=== PATIENT | male | born 1975 | race Caucasian/White ===

== ENCOUNTER 2021-05-04 13:57 | Inpatient (IN) | payer SELFPAY ==
[2021-05-04] MEDS ORDERED: VANCOMYCIN PHARMACY TO DOSE IV SCH ×2 (17:00→23:00)
[2021-05-04] MEDS ORDERED: cefTRIAXone/NS 2 GM/100 ML 2 GM/100 ML BAG IV ONE (17:00)
--- NOTE | 2021-05-04 17:11 | Event Note ---
I evaluated patient. Patient has draining abscess 3 cm dorsal of hand. I recommended clindamycin, outpatient f/u
[2021-05-04] MEDS ORDERED: TETANUS,DIPH,PERTUSS(ACELL) VACCINE 0.5 ML SYRINGE IM ONE (17:14)
--- NOTE | 2021-05-04 17:15 | Emergency Department Report ---
- General Chief complaint: Extremity Injury, Upper Stated complaint: HAND CUT X 1 WEEK Time Seen by Provider: 05/04/21 16:34 Source: patient, [employer] Mode of arrival: Ambulatory Limitations: Language Barrier - History of Present Illness Initial comments: Serbian interpretation by Silvia, patient territory representative/elementary secretary present for HPI, PE, discussion of results, disposition Patient is a 45-year-old male who presents emergency room after cutting his hand with a knife a week and a half ago. He states that it was a work knife and he was cutting a piece of wood. He is unsure of his last tetanus immunization. Patient states that he was advised he had diabetes but never followed up and has never been on medication. He states that 1 week ago his hand began to swell and had purulent drainage. He denies any fever, chills, nausea, vomiting, numbness, weakness. No other past medical history. No allergies to medications. - Related Data Allergies Allergy/AdvReac Type Severity Reaction Status Date / Time No Known Allergies Allergy Verified 05/04/21 17:38 Abscess Boil HPI - HPI Chief Complaint: Extremity Injury, Upper Stated Complaint: HAND CUT X 1 WEEK Time Seen by Provider: 05/04/21 16:34 Allergies/Adverse Reactions: Allergies Allergy/AdvReac Type Severity Reaction Status Date / Time No Known Allergies Allergy Verified 05/04/21 17:38 ED Review of Systems ROS: Stated complaint: HAND CUT X 1 WEEK Other details as noted in HPI Comment: All other systems reviewed and negative ED Past Medical Hx - Past Medical History Previous Medical History?: No - Surgical History Past Surgical History?: No ED Physical Exam - General Limitations: Language Barrier General appearance: alert, in no apparent distress - Head Head exam: Present: atraumatic, normocephalic - Eye Eye exam: Present: normal appearance - ENT ENT exam: Present: mucous membranes moist - Extremities Exam Extremities exam: Present: other (0.5 cm opening present to the dorsum of the left hand, there is small amount of purulent drainage, mild surrounding edema and erythema, mild edema to the proximal left index finger, able to flex the index finger, neurovasculalry intact, no crepitus, no necrosis ) - Neurological Exam Neurological exam: Present: alert, oriented X3 - Psychiatric Psychiatric exam: Present: normal affect, normal mood - Skin Skin exam: Present: warm, dry ED Course Vital Signs 05/04/21 14:45 Temperature 98.3 F Pulse Rate 75 Respiratory 18 Rate Blood Pressure 137/71 O2 Sat by Pulse 99 Oximetry - Consultations Consultation #1: 05/04/21 18:[address] Martinez, hospitalist who will accept and resume care of patient, will admit to hospitalist service ED Medical Decision Making - Lab Data Result diagrams: 05/04/21 17:08 05/04/21 17:08 Lab Results 05/04/21 05/04/21 05/04/21 Range/Units 17:08 17:08 17:08 WBC 8.0 (4.5-11.0) K/mm3 RBC 4.95 (3.65-5.03) M/mm3 Hgb 14.7 (11.8-15.2) gm/dl Hct 42.8 (35.5-45.6) % MCV 87 (84-94) fl MCH 30 (28-32) pg MCHC 34 (32-34) % RDW 13.1 L (13.2-15.2) % Plt Count 273 (140-440) K/mm3 Lymph % (Auto) 19.0 (13.4-35.0) % [place] % (Auto) 4.8 (0.0-7.3) % Eos % (Auto) 8.0 H (0.0-4.3) % Baso % (Auto) 0.8 (0.0-1.8) % Lymph # (Auto) 1.5 (1.2-5.4) K/mm3 [place] # (Auto) 0.4 (0.0-0.8) K/mm3 Eos # (Auto) 0.6 H (0.0-0.4) K/mm3 Baso # (Auto) 0.1 (0.0-0.1) K/mm3 Seg Neutrophils % 67.4 (40.0-70.0) % Seg Neutrophils # 5.4 (1.8-7.7) K/mm3 VBG pH (7.320-7.420) Sodium 137 (137-145) mmol/L Potassium 4.1 (3.6-5.0) mmol/L Chloride 99.3 (98-107) mmol/L Carbon Dioxide 24 (22-30) mmol/L Anion Gap 18 mmol/L BUN 23 H (9-20) mg/dL Creatinine 0.6 L (0.8-1.3) mg/dL Estimated GFR > 60 ml/min BUN/Creatinine Ratio 38 % Glucose 325 H (75-100) mg/dL Lactic Acid 1.20 (0.7-2.0) mmol/L Calcium 9.0 (8.4-10.2) mg/dL Total Bilirubin 0.20 (0.1-1.2) mg/dL AST 12 (5-40) units/L ALT 21 (7-56) units/L Alkaline Phosphatase 148 H (35-129) units/L C-Reactive Protein 1.70 H (0.00-1.30) mg/dL Total Protein 7.4 (6.3-8.2) g/dL Albumin 3.4 L (3.9-5) g/dL Albumin/Globulin Ratio 0.9 % // Range/Units 17:08 WBC (4.5-11.0) K/mm3 RBC (3.65-5.03) M/mm3 Hgb (11.8-15.2) gm/dl Hct (35.5-45.6) % MCV (84-94) fl MCH (28-32) pg MCHC (32-34) % RDW (13.2-15.2) % Plt Count (140-440) K/mm3 Lymph % (Auto) (13.4-35.0) % [place] % (Auto) (0.0-7.3) % Eos % (Auto) (0.0-4.3) % Baso % (Auto) (0.0-1.8) % Lymph # (Auto) (1.2-5.4) K/mm3 [place] # (Auto) (0.0-0.8) K/mm3 Eos # (Auto) (0.0-0.4) K/mm3 Baso # (Auto) (0.0-0.1) K/mm3 Seg Neutrophils % (40.0-70.0) % Seg Neutrophils # (1.8-7.7) K/mm3 VBG pH 7.458 H (7.320-7.420) Sodium (137-145) mmol/L Potassium (3.6-5.0) mmol/L Chloride (98-107) mmol/L Carbon Dioxide (22-30) mmol/L Anion Gap mmol/L BUN (9-20) mg/dL Creatinine (0.8-1.3) mg/dL Estimated GFR ml/min BUN/Creatinine Ratio % Glucose (75-100) mg/dL Lactic Acid (0.7-2.0) mmol/L Calcium (8.4-10.2) mg/dL Total Bilirubin (0.1-1.2) mg/dL AST (5-40) units/L ALT (7-56) units/L Alkaline Phosphatase (35-129) units/L C-Reactive Protein (0.00-1.30) mg/dL Total Protein (6.3-8.2) g/dL Albumin (3.9-5) g/dL Albumin/Globulin Ratio % - Radiology Data Radiology results: report reviewed Ordering Physician: NEDA NINO Date of Service: 05/04/21 Procedure(s): XR hand 3+V LT Accession Number(s): [id number] cc: NEDA NINO Fluoro Time In Minutes: LEFT HAND 3 VIEWS 1736 INDICATION: hand infection, cut 1 1/2 week ago, hx of DM COMPARISON: None available. FINDINGS: Images were obtained emphasizing the soft tissues. No soft tissue gas is seen. Diffuse edema of the hand is noted which is most prominent laterally. No foreign body is detected. No fractures or dislocations are obvious. The head of the second metacarpal ventrally and laterally appears to show decreased density and the cortex is poorly defined. I am concerned given the history this could represent focal osteomyelitis. There is also a question of loss of the cortex along the medial border of the second metacarpal head on the AP view. Prominent arthritic change is seen in the proximal interphalangeal joint of the middle finger with mild arthritic change at the third metacarpal phalangeal joint. There possibly is been an old fracture or infection of the distal portion of the proximal phalanx of the middle finger. No definite acute erosions are seen. I would suggest Signer Name: Omega Goddard MD Signed: 05/04/2021 5:41 PM Workstation Name: [id number] Transcribed By: GJ Dictated By: Omega Goddard MD Electronically Authenticated By: Omega Goddard MD Signed Date/Time: 05/04/211740 DD/ 33 TD/TT: - Medical Decision Making Serbian interpretation by Silvia, patient territory representative/elementary secretary present for HPI, PE, discussion of results, disposition Patient is a 45-year-old male who presents emergency room after cutting his hand with a knife a week and a half ago. He states that it was a work knife and he was cutting a piece of wood. He is unsure of his last tetanus immunization. Patient states that he was advised he had diabetes but never followed up and has never been on medication. He states that 1 week ago his hand began to swell and had purulent drainage. He denies any fever, chills, nausea, vomiting, numbness, weakness. No other past medical history. No allergies to medications. Vitals are normal. On exam:0.5 cm opening present to the dorsum of the left hand, there is small amount of purulent drainage, mild surrounding edema and erythema, mild edema to the proximal left index finger, able to flex the index finger, neurovasculalry intact, no crepitus, no necrosis. Examination presents distant with cellulitis and open and draining abscess. Labs significant for elevated blood glucose, no leukocytosis, no lactic acidosis. X-ray left hand: Images were obtained emphasizing the soft tissues. No soft tissue gas is seen. Diffuse edema of the hand is noted which is most prominent laterally. No foreign body is detected. No fractures or dislocations are obvious. The head of the second metacarpal ventrally and laterally appears to show decreased density and the cortex is poorly defined. I am concerned given the historythis could represent focal osteomyelitis. There is also a question of loss of the cortex along the medial border of the second metacarpal head on the AP view. Prominent arthritic change is seen in the proximal interphalangeal joint of the middle finger with mild arthritic change at the third metacarpal phalangeal joint. There possibly is been an old fracture or infection of the distal portion of the proximal phalanx of the middle finger. No definite acute erosions are seen. I would suggest MR. Discussed case with Dr. Jany Johnson, ER attending who evaluated patient at bedside and reviewed images and agrees with admission, she advised to give patient IV clindamycin. Discussed all results with patient using [employer] [place] and patient was agreeable with admission. Discussed case with Dr. Martinez, hospitalist who will accept and resume care of patient, will admit to hospitalist service Critical care attestation.: If time is entered above; I have spent that time in minutes in the direct care of this critically ill patient, excluding procedure time. ED Disposition Clinical Impression: Cellulitis of hand, Hand abscess Osteomyelitis Qualifiers: Osteomyelitis type: unspecified type Osteomyelitis location: hand Laterality: right Qualified Code(s): M86.9 - Osteomyelitis, unspecified Uncontrolled diabetes mellitus Qualifiers: Diabetes mellitus type: type 2 Glycemic state: with hyperglycemia Qualified Code(s): E11.65 - Type 2 diabetes mellitus with hyperglycemia Disposition: [facility] Is pt being admited?: Yes Does the pt Need Aspirin: No Condition: Fair Time of Disposition: 18:36
--- NOTE | 2021-05-04 17:45 | XRay Report ---
LEFT HAND 3 VIEWS 1736 INDICATION: hand infection, cut 1 1/2 week ago, hx of DM COMPARISON: None available. FINDINGS: Images were obtained emphasizing the soft tissues. No soft tissue gas is seen. Diffuse kaleb a of the hand is noted which is most prominent laterally. No foreign body is detected. No fractures o r dislocations are obvious. The head of the second metacarpal ventrally and laterally appears to show decreased density and the cortex is poorly defined. I am concerned given the history this could repr esent focal osteomyelitis. There is also a question of loss of the cortex along the medial border of the second metacarpal head on the AP view. Prominent arthritic change is seen in the proximal interphalangeal joint of the middle finger with mi ld arthritic change at the third metacarpal phalangeal joint. There possibly is been an old fracture or infection of the distal portion of the proximal phalanx of the middle finger. No definite acute er osions are seen. I would suggest MR. Signer Name: Omega Goddard MD Signed: 05/04/2021 5:41 PM Workstation Name: [email or web address]
[2021-05-04] MEDS ORDERED: VANCOMYCIN/NS 1 GM/250 ML 1 GM/250 ML BAG IV ONE (18:00)
[2021-05-04 18:04] LABS: Basophils # (Auto) 0.1 K/mm3 (0.0-0.1); Basophils % (Auto) 0.8 % (0.0-1.8); Eosinophils # (Auto) 0.6 K/mm3 (0.0-0.4); Hematocrit 42.8 % (35.5-45.6); Hemoglobin 14.7 gm/dl (11.8-15.2); Lymphocytes # (Auto) 1.5 K/mm3 (1.2-5.4); Mean Corpuscular HGB Conc 34 % (32-34); Mean Corpuscular Volume 87 fl (84-94); Monocytes # (Auto) 0.4 K/mm3 (0.0-0.8); Monocytes % (Auto) 4.8 % (0.0-7.3); Platelet Count 273 K/mm3 (140-440); Red Blood Count 4.95 M/mm3 (3.65-5.03); Red Cell Distribution Width 13.1 % (13.2-15.2)
[2021-05-04 18:12] LABS: Alanine Aminotransferase 21 units/L (7-56); Albumin 3.4 g/dL (3.9-5); Blood Urea Nitrogen 23 mg/dL (9-20); Hemolysis Index 4
[2021-05-04 18:17] LABS: BUN/Creatinine Ratio 38
--- NOTE | 2021-05-04 22:25 | History and Physical Report ---
History of Present Illness Date of examination: 05/04/21 Date of admission: 05/04/21 18:36 Chief complaint: Swollen right hand for 1 week History of present illness: 45-year-old Tongan-speaking male comes to the emergency room for swelling of the left hand and pain for 10 days. Patient apparently cut his hand with a knife accidentally while cutting a piece of wood. Patient is not sure about his tetanus evaluation. Patient has diabetes but not taking any medications and is noncompliant with his diabetes. Since 1 week stable his hand got swollen and purulent discharge present. No fever or chills. Pain is about 7 on a regular 1-10. - Past Medical History diabetes-noncompliant - Surgical History Past Surgical History?: No -social history -does not smoke, alcohol occasionally - family history --diabetes Review of Systems ROS: Stated complaint:Lt HAND CUT X 10 days and swelling for 1 week Other details as noted in HPI Comment: All other systems reviewed and negative Medications and Allergies Allergies Allergy/AdvReac Type Severity Reaction Status Date / Time No Known Allergies Allergy Verified 05/04/21 17:38 Exam - Constitutional Vitals: Temp Pulse Resp BP Pulse Ox 98.3 F 75 18 137/71 99 05/04/21 14:45 05/04/21 14:45 05/04/21 14:45 05/04/21 14:45 05/04/21 14:45 General appearance: Present: no acute distress, well-nourished - EENT Eyes: Present: PERRL ENT: hearing intact, clear oral mucosa - Neck Neck: Present: supple, normal ROM - Respiratory Respiratory effort: normal Respiratory: bilateral: CTA - Cardiovascular Heart rate: 78 Rhythm: regular Heart Sounds: Present: S1 & S2. Absent: rub, click - Extremities Extremities: no ischemia, pulses intact (Right hand swollen on the dorsum of the hand and index finger. Ring fingers flexion deformity which is from the past), pulses symmetrical, No edema, abnormal Peripheral Pulses: within normal limits - Abdominal General gastrointestinal: Present: soft, non-tender, non-distended, normal bowel sounds Male genitourinary: Present: normal - Integumentary Integumentary: Present: clear, warm, dry - Musculoskeletal Musculoskeletal: gait normal, strength equal bilaterally - Psychiatric Psychiatric: appropriate mood/affect, intact judgment & insight - Neurologic Neurologic: CNII-XII intact, moves all extremities Results - Labs CBC & Chem 7: 05/05/21 04:20 05/05/21 04:20 Labs: Laboratory Last Values WBC 8.0 K/mm3 (4.5-11.0) 05/04/21 17:08 RBC 4.95 M/mm3 (3.65-5.03) 05/04/21 17:08 Hgb 14.7 gm/dl (11.8-15.2) 05/04/21 17:08 Hct 42.8 % (35.5-45.6) 05/04/21 17:08 MCV 87 fl (84-94) 05/04/21 17:08 MCH 30 pg (28-32) 05/04/21 17:08 MCHC 34 % (32-34) 05/04/21 17:08 RDW 13.1 % (13.2-15.2) L 05/04/21 17:08 Plt Count 273 K/mm3 (140-440) 05/04/21 17:08 Lymph % (Auto) 19.0 % (13.4-35.0) 05/04/21 17:08 [place] % (Auto) 4.8 % (0.0-7.3) 05/04/21 17:08 Eos % (Auto) 8.0 % (0.0-4.3) H 05/04/21 17:08 Baso % (Auto) 0.8 % (0.0-1.8) 05/04/21 17:08 Lymph # (Auto) 1.5 K/mm3 (1.2-5.4) 05/04/21 17:08 [place] # (Auto) 0.4 K/mm3 (0.0-0.8) 05/04/21 17:08 Eos # (Auto) 0.6 K/mm3 (0.0-0.4) H 05/04/21 17:08 Baso # (Auto) 0.1 K/mm3 (0.0-0.1) 05/04/21 17:08 Seg Neutrophils % 67.4 % (40.0-70.0) 05/04/21 17:08 Seg Neutrophils # 5.4 K/mm3 (1.8-7.7) 05/04/21 17:08 VBG pH 7.458 (7.320-7.420) H 05/04/21 17:08 Sodium 137 mmol/L (137-145) 05/04/21 17:08 Potassium 4.1 mmol/L (3.6-5.0) 05/04/21 17:08 Chloride 99.3 mmol/L (98-107) 05/04/21 17:08 Carbon Dioxide 24 mmol/L (22-30) 05/04/21 17:08 Anion Gap 18 mmol/L 05/04/21 17:08 BUN 23 mg/dL (9-20) H 05/04/21 17:08 Creatinine 0.6 mg/dL (0.8-1.3) L 05/04/21 17:08 Estimated GFR > 60 ml/min 05/04/21 17:08 BUN/Creatinine Ratio 38 % 05/04/21 17:08 Glucose 325 mg/dL (75-100) H 05/04/21 17:08 Lactic Acid 1.20 mmol/L (0.7-2.0) 05/04/21 17:08 Calcium 9.0 mg/dL (8.4-10.2) 05/04/21 17:08 Total Bilirubin 0.20 mg/dL (0.1-1.2) 05/04/21 17:08 AST 12 units/L (5-40) 05/04/21 17:08 ALT 21 units/L (7-56) 05/04/21 17:08 Alkaline Phosphatase 148 units/L (35-129) H 05/04/21 17:08 C-Reactive Protein 1.70 mg/dL (0.00-1.30) H 05/04/21 17:08 Total Protein 7.4 g/dL (6.3-8.2) 05/04/21 17:08 Albumin 3.4 g/dL (3.9-5) L 05/04/21 17:08 Albumin/Globulin Ratio 0.9 % 05/04/21 17:08 Microbiology: Microbiology 05/04/21 17:08 Peripheral/Venous Blood Culture - Preliminary Culture in Progress 05/04/21 17:08 Peripheral/Venous Blood Culture - Preliminary Culture in Progress - Imaging and Cardiology Imaging and Cardiology: L Hand x-ray No soft tissue gas is seen Diffuse edema of the hand is noted which is prominent laterally. No foreign body is detected. No fractures. The head of the second metacarpal ventrally and laterally 52 increased density in the cortex is poorly defined. Concern given the history this could represent focal osteomyelitis. There is also a question of loss of the cortex along the medial border of the second metacarpal head on the AP view. Prominent arthritic changes seen in the proximal interphalangeal joint of the middle finger with mild arthritic change at the third metacarpal phalangeal joint. There possibly has been an old fracture infection of the distal portion of the proximal phalanx of the middle finger. MRI was suggested by radiology. Assessment and Plan Advance Directives: Yes (Full code) VTE prophylaxis?: Chemical Plan of care discussed with patient/family: Yes - Patient Problems (1) Cellulitis of hand Current Visit: Yes Status: Acute Plan to address problem: Patient initiated on IV Unasyn and IV vancomycin Surgery consult Orthopedic consult (2) Osteomyelitis Current Visit: Yes Status: Acute Qualifiers: Osteomyelitis type: unspecified type Osteomyelitis location: hand Laterality: right Qualified Code(s): M86.9 - Osteomyelitis, unspecified Plan to address problem: Possible osteomyelitis MRI of the hand suggested (3) Uncontrolled diabetes mellitus Current Visit: Yes Status: Acute Qualifiers: Diabetes mellitus type: type 2 Glycemic state: with hyperglycemia Qualified Code(s): E11.65 - Type 2 diabetes mellitus with hyperglycemia Plan to address problem: Patient initiated on Metformin and glimepiride Coverage for now Diabetic teaching (4) Trigger middle finger of left hand Current Visit: Yes Status: Chronic Plan to address problem: From the past secondary to hand injury and possible tendon deformity versus fracture of the third metacarpal/interphalangeal joint-PIP (5) DVT prophylaxis Current Visit: Yes Status: Acute Plan to address problem: on heparin and GI prophylaxis
[2021-05-04] MEDS ORDERED: ONDANSETRON 4 MG/2 ML INJ IV PRN (23:50)
[2021-05-04] MEDS ORDERED: HYDROmorphone 1 MG/1 ML INJ IV PRN (23:50)
[2021-05-04] MEDS ORDERED: METOCLOPRAMIDE 10 MG/2 ML INJ IV PRN (23:50)
[2021-05-04] MEDS ORDERED: DEXTROSE 50% IN WATER (25GM) 50 ML SYRINGE IV PRN (23:50)
[2021-05-04] MEDS ORDERED: oxyCODONE /ACETAMINOPHEN 5-325MG TAB PO PRN (23:50)
[2021-05-04] MEDS ORDERED: ACETAMINOPHEN 325 MG TAB PO PRN (23:50)
[2021-05-05] MEDS ORDERED: VANCOMYCIN 2,000 MG in SODIUM CHLORIDE 0.9% 500 ML 500 ML IV ONE (01:00)
[2021-05-05] MEDS ORDERED: VANCOMYCIN 1,750 MG in SODIUM CHLORIDE 0.9% 500 ML 500 ML IV ONE (01:00)
[2021-05-05] MEDS: AMPICILLIN/SULBACTA 3GM/100ML 3 GM/100 ML BAG IV SCH ×4 (01:24→17:59)
[2021-05-05 04:40] LABS: Basophils % (Auto) 0.4 % (0.0-1.8); Eosinophils # (Auto) 0.7 K/mm3 (0.0-0.4); Eosinophils % (Auto) 7.7 % (0.0-4.3); Hematocrit 41.2 % (35.5-45.6); Hemoglobin 14.3 gm/dl (11.8-15.2); Lymphocytes % (Auto) 22.4 % (13.4-35.0); Mean Corpuscular HGB Conc 35 % (32-34); Mean Corpuscular Volume 85 fl (84-94); Monocytes # (Auto) 0.6 K/mm3 (0.0-0.8); Monocytes % (Auto) 6.3 % (0.0-7.3); Platelet Count 265 K/mm3 (140-440); Red Blood Count 4.83 M/mm3 (3.65-5.03); Red Cell Distribution Width 13.2 % (13.2-15.2)
[2021-05-05 05:02] LABS: Blood Urea Nitrogen 22 mg/dL (9-20); Calcium 8.9 mg/dL (8.4-10.2); Hemolysis Index 3
[2021-05-05 05:03] LABS: BUN/Creatinine Ratio 44
[2021-05-05] MEDS: INSULIN LISPRO 100 UNIT/ML SUB-Q SCH ×4 (07:22→22:00)
--- NOTE | 2021-05-05 10:37 | Progress Note ---
Assessment and Plan Assessment and plan: --Cellulitis of hand Current Visit: Yes Status: Acute Patient initiated on IV Unasyn and IV vancomycin Pending surgery and Ortho consult Elevate the limb, pain medications, antibiotics --Possible osteomyelitis Current Visit: Yes Status: Acute Pending MRI, follow Ortho and surgery evaluations --0Uncontrolled diabetes mellitus Current Visit: Yes Status: Acute Patient initiated on Metformin and glimepiride Accu-Chek sliding scale coverage ,coverage for now Diabetic teaching, check A1c 9.7 --left hand cellulitis/abscess/deformity Current Visit: Yes Status: Chronic Elevate the limb, pain medications, anti-inflammatories IV antibiotics, possible I&D if needed, follow MRI --DVT prophylaxis Current Visit: Yes Status: Acute on heparin and GI prophylaxis We will closely monitor the patient and adjust management as needed Plan of care reviewed with the patient and his nurse History Interval history: I have seen and examined the patient at the bedside this morning Patient's chart and medications reviewed patient complains of severe pain of the left hand MRI done this morning Hospitalist Physical - Constitutional Vitals: Temp Pulse Resp BP Pulse Ox 98.3 F 74 19 120/71 91 05/04/21 22:37 05/05/21 08:51 05/05/21 08:51 05/05/21 08:51 05/05/21 08:51 General appearance: Present: mild distress, well-nourished - EENT Eyes: Present: PERRL, EOM intact - Neck Neck: Present: supple, normal ROM - Respiratory Respiratory effort: normal Respiratory: bilateral: diminished, negative: rales, rhonchi, wheezing - Cardiovascular Rhythm: regular Heart Sounds: Present: S1 & S2 - Extremities Extremities: no ischemia, abnormal (Left hand severely swollen, infected wound present, possible cellulitis/abscess) Extremity abnormal: edema, other (Deformity) - Abdominal General gastrointestinal: soft, non-tender, non-distended, normal bowel sounds - Integumentary Integumentary: Present: clear, warm - Psychiatric Psychiatric: appropriate mood/affect, cooperative - Neurologic Neurologic: CNII-XII intact, moves all extremities Results - Labs CBC & Chem 7: 05/05/21 04:20 05/05/21 04:20 Labs: Laboratory Last Values WBC 9.0 K/mm3 (4.5-11.0) 05/05/21 04:20 RBC 4.83 M/mm3 (3.65-5.03) 05/05/21 04:20 Hgb 14.3 gm/dl (11.8-15.2) 05/05/21 04:20 Hct 41.2 % (35.5-45.6) 05/05/21 04:20 MCV 85 fl (84-94) 05/05/21 04:20 MCH 30 pg (28-32) 05/05/21 04:20 MCHC 35 % (32-34) H 05/05/21 04:20 RDW 13.2 % (13.2-15.2) 05/05/21 04:20 Plt Count 265 K/mm3 (140-440) 05/05/21 04:20 Lymph % (Auto) 22.4 % (13.4-35.0) 05/05/21 04:20 [place] % (Auto) 6.3 % (0.0-7.3) 05/05/21 04:20 Eos % (Auto) 7.7 % (0.0-4.3) H 05/05/21 04:20 Baso % (Auto) 0.4 % (0.0-1.8) 05/05/21 04:20 Lymph # (Auto) 2.0 K/mm3 (1.2-5.4) 05/05/21 04:20 [place] # (Auto) 0.6 K/mm3 (0.0-0.8) 05/05/21 04:20 Eos # (Auto) 0.7 K/mm3 (0.0-0.4) H 05/05/21 04:20 Baso # (Auto) 0.0 K/mm3 (0.0-0.1) 05/05/21 04:20 Seg Neutrophils % 63.2 % (40.0-70.0) 05/05/21 04:20 Seg Neutrophils # 5.7 K/mm3 (1.8-7.7) 05/05/21 04:20 VBG pH 7.458 (7.320-7.420) H 05/04/21 17:08 Sodium 138 mmol/L (137-145) 05/05/21 04:20 Potassium 3.6 mmol/L (3.6-5.0) 05/05/21 04:20 Chloride 101.6 mmol/L (98-107) 05/05/21 04:20 Carbon Dioxide 25 mmol/L (22-30) 05/05/21 04:20 Anion Gap 15 mmol/L 05/05/21 04:20 BUN 22 mg/dL (9-20) H 05/05/21 04:20 Creatinine 0.5 mg/dL (0.8-1.3) L 05/05/21 04:20 Estimated GFR > 60 ml/min 05/05/21 04:20 BUN/Creatinine Ratio 44 % 05/05/21 04:20 Glucose 193 mg/dL (75-100) H 05/05/21 04:20 POC Glucose 193 mg/dL (70-105) H 05/05/21 06:36 Hemoglobin A1c 9.7 % (4-6) H 05/05/21 04:20 Lactic Acid 1.20 mmol/L (0.7-2.0) 05/04/21 17:08 Calcium 8.9 mg/dL (8.4-10.2) 05/05/21 04:20 Total Bilirubin 0.20 mg/dL (0.1-1.2) 05/04/21 17:08 AST 12 units/L (5-40) 05/04/21 17:08 ALT 21 units/L (7-56) 05/04/21 17:08 Alkaline Phosphatase 148 units/L (35-129) H 05/04/21 17:08 C-Reactive Protein 1.70 mg/dL (0.00-1.30) H 05/04/21 17:08 Total Protein 7.4 g/dL (6.3-8.2) 05/04/21 17:08 Albumin 3.4 g/dL (3.9-5) L 05/04/21 17:08 Albumin/Globulin Ratio 0.9 % 05/04/21 17:08 Microbiology: Microbiology 05/04/21 17:08 Peripheral/Venous Blood Culture - Preliminary Culture in Progress 05/04/21 17:08 Peripheral/Venous Blood Culture - Preliminary Culture in Progress Active Medications - Current Medications Current Medications: Generic Name Dose Route Start Last Admin Trade Name Freq PRN Reason Stop Dose Admin Acetaminophen 650 mg 05/04/21 23:50 Acetaminophen 325 Mg Tab PO Q4H PRN Pain MILD(1-3)/Fever >100.5/LIMON Dextrose 50 ml 05/04/21 23:50 Dextrose 50% In Water (25gm) 50 Ml Syringe IV Q30MIN PRN Hypoglycemia Protocol Famotidine 20 mg 05/05/21 10:00 Famotidine 20 Mg Tab PO BID [facility] Glipizide 5 mg 05/05/21 09:00 Glipizide 5 Mg Tab PO BIDDIAB [facility] Heparin Sodium (Porcine) 5,000 unit 05/05/21 10:00 Heparin 5,000 Unit/1 Ml Vial SUB-Q Q12HR [facility] Hydromorphone HCl 0.5 mg 05/04/21 23:50 Hydromorphone 1 Mg/1 Ml Inj IV Q3H PRN Pain , Severe (7-10) Sodium Chloride 1,000 mls @ 75 mls/hr 05/04/21 23:50 Nacl 0.9% 1000 Ml IV DIRECT [facility] Ampicillin Sodium/Sulbactam Sodium 3 gm in 100 mls @ 100 mls/hr 05/05/21 00:00 05/05/21 06:27 Unasyn/Ns 3 Gm/100 Ml IV 100 mls/hr Q6HR [facility] Administration Protocol Vancomycin HCl 1,500 mg/ 530 mls @ 333.333 mls/hr 05/05/21 13:00 Sodium Chloride IV Q12H [facility] Insulin Human Lispro 0 unit 05/05/21 07:30 05/05/21 07:22 Insulin Lispro 100 Unit/Ml SUB-Q 3 unit ACHS [facility] Administration Protocol Metformin HCl 500 mg 05/05/21 09:00 Metformin 500 Mg Tab PO BIDDIAB [facility] Metoclopramide HCl 10 mg 05/04/21 23:50 Metoclopramide 10 Mg/2 Ml Inj IV Q6H PRN Nausea And Vomiting Ondansetron HCl 4 mg 05/04/21 23:50 Ondansetron 4 Mg/2 Ml Inj IV Q8H PRN Nausea And Vomiting Oxycodone/Acetaminophen 1 tab 05/04/21 23:50 Oxycodone /Acetaminophen 5-325mg Tab PO Q6H PRN Pain, Moderate (4-6) Sodium Chloride 10 ml 05/04/21 23:50 05/05/21 01:24 Sodium Chloride 0.9% 10 Ml Flush Syringe IV 10 ml BID SIMEON Administration Sodium Chloride 10 ml 05/04/21 23:50 Sodium Chloride 0.9% 10 Ml Flush Syringe IV PRN PRN LINE FLUSH
[2021-05-05] MEDS: metFORMIN 500 MG TAB PO SCH ×2 (10:52→18:00)
[2021-05-05] MEDS: glipiZIDE 5 MG TAB PO SCH ×2 (10:52→18:00)
[2021-05-05] MEDS: HEPARIN 5,000 UNIT/1 ML VIAL SUB-Q SCH ×2 (12:18→22:14)
[2021-05-05] MEDS: FAMOTIDINE 20 MG TAB PO SCH ×2 (12:19→22:15)
[2021-05-05] MEDS: VANCOMYCIN 1,500 MG in SODIUM CHLORIDE 0.9% 500 ML 500 ML IV SCH (12:21)
--- NOTE | 2021-05-05 12:28 | Consultation ---
History of Present Illness - HPI Consult date: 05/05/21 Consult reason: joint pain History of present illness: 45 y/o male with c/o left hand pain and swelling for past wk, states originally injured hand cutting wood...seen in the ED and admitted... Medications and Allergies Allergies Allergy/AdvReac Type Severity Reaction Status Date / Time No Known Allergies Allergy Verified 05/04/21 17:38 Active Meds: Active Medications Acetaminophen (Acetaminophen 325 Mg Tab) 650 mg PO Q4H PRN PRN Reason: Pain MILD(1-3)/Fever >100.5/LIMON Dextrose (Dextrose 50% In Water (25gm) 50 Ml Syringe) 50 ml IV Q30MIN PRN; Protocol PRN Reason: Hypoglycemia Famotidine (Famotidine 20 Mg Tab) 20 mg PO BID [facility] Last Admin: 05/05/21 12:19 Dose: Not Given Documented by: Glipizide (Glipizide 5 Mg Tab) 5 mg PO BIDDIAB [facility] Last Admin: 05/05/21 10:52 Dose: Not Given Documented by: Heparin Sodium (Porcine) (Heparin 5,000 Unit/1 Ml Vial) 5,000 unit SUB-Q Q12HR [facility] Last Admin: 05/05/21 12:18 Dose: Not Given Documented by: Hydromorphone HCl (Hydromorphone 1 Mg/1 Ml Inj) 0.5 mg IV Q3H PRN PRN Reason: Pain , Severe (7-10) Sodium Chloride (Nacl 0.9% 1000 Ml) 1,000 mls @ 75 mls/hr IV DIRECT [facility] Ampicillin Sodium/Sulbactam Sodium (Unasyn/Ns 3 Gm/100 Ml) 3 gm in 100 mls @ 100 mls/hr IV Q6HR [facility]; Protocol Last Admin: 05/05/21 06:27 Dose: 100 mls/hr Documented by: Vancomycin HCl 1,500 mg/ (Sodium Chloride) 530 mls @ 333.333 mls/hr IV Q12H [facility] Last Admin: 05/05/21 12:21 Dose: 333.333 mls/hr Documented by: Insulin Human Lispro (Insulin Lispro 100 Unit/Ml) 0 unit SUB-Q ACHS [facility]; Pr otocol Last Admin: 05/05/21 12:19 Dose: Not Given Documented by: Metformin HCl (Metformin 500 Mg Tab) 500 mg PO BIDDIAB [facility] Last Admin: 05/05/21 10:52 Dose: Not Given Documented by: Metoclopramide HCl (Metoclopramide 10 Mg/2 Ml Inj) 10 mg IV Q6H PRN PRN Reason: Nausea And Vomiting Ondansetron HCl (Ondansetron 4 Mg/2 Ml Inj) 4 mg IV Q8H PRN PRN Reason: Nausea And Vomiting Oxycodone/Acetaminophen (Oxycodone /Acetaminophen 5-325mg Tab) 1 tab PO Q6H PRN PRN Reason: Pain, Moderate (4-6) Sodium Chloride (Sodium Chloride 0.9% 10 Ml Flush Syringe) 10 ml IV BID [facility] Last Admin: 05/05/21 12:22 Dose: 10 ml Documented by: Sodium Chloride (Sodium Chloride 0.9% 10 Ml Flush Syringe) 10 ml IV PRN PRN PRN Reason: LINE FLUSH Physical Examination - Physical exam Narrative exam: left hand - moderate swelling dorsally, + drainage, no pus expressed with deep palpation, good passive RoM at 1,2nd fingers, + erythema dorsally, good capillary refill plain xrays reviewed left hand and show mild osteopenia, no bony changes seen suggestive of osteomyelitis mri scan reviewed by me and show no obvious abscess formation in the hand... Eyes: PERRL ENT: Positive: clear oral mucosa Respiratory effort: normal Respiratory: bilateral: CTA Rhythm: regular Heart Sounds: Positive: S1 & S2 General gastrointestinal: Positive: soft, non-tender, non-distended, normal bowel sounds Integumentary: clear, warm, dry Neurologic: Positive: CNII-XII intact, moves all extremities, gait normal. Negative: focal deficits Assessment and Plan Cellulitis left hand recommend = continue IVAB and observation at this time, doubt need for I&D since no abscess seen on mri scan...
--- NOTE | 2021-05-05 12:40 | Magnetic Resonance Report ---
MRI LEFT HAND WITHOUT CONTRAST INDICATION / CLINICAL INFORMATION: MRI of the left hand for possible osteomyelitis. TECHNIQUE: Multiplanar, multisequence MR images were obtained. COMPARISON: Left hand radiograph one day prior FINDINGS: Intramuscular and soft tissue edema centered about the index finger metacarpal phalangeal j oint with abnormal marrow signal involving the distal second metacarpal and base of the proximal phal anx of the index finger. There is an effusion of the second MCP joint. There are a few scattered foci of gas within the dorsal subcutaneous tissues of the hand. Small focus of magnetic susceptibility ov erlying the dorsal aspect of the second metacarpal head. No discrete fluid collection is identified t o suggest abscess. Polyarticular degenerative changes, most severe at the third PIP joint. IMPRESSION: 1. Osteomyelitis involving the mid and distal second metacarpal as well as the base of the second pr oximal phalanx. Second MCP joint effusion with periarticular osteomyelitis is most consistent with se ptic arthritis of the second MCP joint. 2. Soft tissue and intramuscular edema centered about the second MCP joint but extending throughout the dorsal and palmar soft tissues of the distal palm. 3. Small focus of magnetic susceptibility overlying the dorsal aspect of the second metacarpal head, may reflect foreign body or soft tissue gas/sinus tract. Report dictated by: Diego Chun MD Report dictated on: 05/05/2021 9:29 AM I have reviewed the images, agree with this report, and edited this report as needed. Signer Name: Chip Luciano MD Signed: 05/05/2021 12:35 PM Workstation Name: [employer]
[2021-05-05] MEDS ORDERED: fentaNYL 100 MCG/2 ML INJ ONE ×2 (12:52→13:39)
[2021-05-05] MEDS ORDERED: LIDOCAINE PF 100 MG/5 ML (CARDIAC SYRINGE) IV ONE (12:52)
[2021-05-05] MEDS ORDERED: propofoL 200 MG/20 ML VIAL IV ONE (12:53)
[2021-05-05] MEDS ORDERED: HYDROGEN PEROXIDE 118 ML SOLUTION ONE (12:58)
--- NOTE | 2021-05-05 13:30 | Consultation ---
History of Present Illness Consult date: 05/05/21 Chief complaint: Left hand infection - History of present illness History of present illness: 45 yo diabetic male with progressive left hand infection which began after an injury sustained while cutting wood a week ago. He does not take any diabetic meds. Past History Past Medical History: diabetes Medications and Allergies Allergies Allergy/AdvReac Type Severity Reaction Status Date / Time No Known Allergies Allergy Verified 05/04/21 17:38 Active Meds: Active Medications Acetaminophen (Acetaminophen 325 Mg Tab) 650 mg PO Q4H PRN PRN Reason: Pain MILD(1-3)/Fever >100.5/LIMON Dextrose (Dextrose 50% In Water (25gm) 50 Ml Syringe) 50 ml IV Q30MIN PRN; Protocol PRN Reason: Hypoglycemia Famotidine (Famotidine 20 Mg Tab) 20 mg PO BID [facility] Last Admin: 05/05/21 12:19 Dose: Not Given Documented by: Glipizide (Glipizide 5 Mg Tab) 5 mg PO BIDDIAB [facility] Last Admin: 05/05/21 10:52 Dose: Not Given Documented by: Heparin Sodium (Porcine) (Heparin 5,000 Unit/1 Ml Vial) 5,000 unit SUB-Q Q12HR [facility] Last Admin: 05/05/21 12:18 Dose: Not Given Documented by: Hydromorphone HCl (Hydromorphone 1 Mg/1 Ml Inj) 0.5 mg IV Q3H PRN PRN Reason: Pain , Severe (7-10) Sodium Chloride (Nacl 0.9% 1000 Ml) 1,000 mls @ 75 mls/hr IV DIRECT [facility] Ampicillin Sodium/Sulbactam Sodium (Unasyn/Ns 3 Gm/100 Ml) 3 gm in 100 mls @ 100 mls/hr IV Q6HR [facility]; Protocol Last Admin: 05/05/21 12:29 Dose: 100 mls/hr Documented by: Vancomycin HCl 1,500 mg/ (Sodium Chloride) 530 mls @ 333.333 mls/hr IV Q12H [facility] Last Admin: 05/05/21 12:21 Dose: 333.333 mls/hr Documented by: Insulin Human Lispro (Insulin Lispro 100 Unit/Ml) 0 unit SUB-Q ACHS [facility]; Protocol Last Admin: 05/05/21 12:19 Dose: Not Given Documented by: Metformin HCl (Metformin 500 Mg Tab) 500 mg PO BIDDIAB [facility] Last Admin: 05/05/21 10:52 Dose: Not Given Documented by: Metoclopramide HCl (Metoclopramide 10 Mg/2 Ml Inj) 10 mg IV Q6H PRN PRN Reason: Nausea And Vomiting Ondansetron HCl (Ondansetron 4 Mg/2 Ml Inj) 4 mg IV Q8H PRN PRN Reason: Nausea And Vomiting Oxycodone/Acetaminophen (Oxycodone /Acetaminophen 5-325mg Tab) 1 tab PO Q6H PRN PRN Reason: Pain, Moderate (4-6) Sodium Chloride (Sodium Chloride 0.9% 10 Ml Flush Syringe) 10 ml IV BID [facility] Last Admin: 05/05/21 12:22 Dose: 10 ml Documented by: Sodium Chloride (Sodium Chloride 0.9% 10 Ml Flush Syringe) 10 ml IV PRN PRN PRN Reason: LINE FLUSH Review of Systems All systems: negative (none) Exam Vital Signs Temp Pulse Resp BP Pulse Ox 98.3 F 75 18 137/71 99 05/04/21 14:45 05/04/21 14:45 05/04/21 14:45 05/04/21 14:45 05/04/21 14:45 - General physical appearance Positive: well developed, well nourished, no distress - Eyes Positive: PERRL, normal occular movement - ENT Positive: normal pinna, normal nares, normal mucosa, no hearing loss, no congestion - Neck Positive: no masses, no bruits, trachea midline, no venous distension - Respiratory Positive: normal expansion, normal respiratory effort, clear to auscultation - Cardiovascular Rhythm: regular Heart Sounds: Present: S1 & S2. Absent: rub, click - Extremities Extremities: no ischemia, pulses symmetrical, No edema - Breasts Breasts: normal, no mass, no skin changes - Abdomen Abdomen: Present: soft, bowel sounds normal. Absent: tender, distended Hernia: none - Genitourinary Male Genitourinary: normal Female Genitourinary: normal - Integumentary no rash, no growths, no abnormal pigmentation, other (The left hand is edematous and inflamed over the dorsal 2nd metacarpal head. There is a 3 mm skin opening over the 2nd metacarpal head with expression of pus from the opening with digital pressure about the metacarpal head. This is quite tender.) - Neurologic Neurologic: alert and oriented to time, place and person, motor strength and sensation are grossly intact - Musculoskeletal normal gait, normal posture - Psychiatric Psychiatric: appropriate mood/affect, intact judgment & insight Results - Labs 05/05/21 04:20 05/05/21 04:20 Abnormal lab results 05/04/21 05/04/21 05/04/21 Range/Units 17:08 17:08 17:08 MCHC (32-34) % RDW 13.1 L (13.2-15.2) % Eos % (Auto) 8.0 H (0.0-4.3) % Eos # (Auto) 0.6 H (0.0-0.4) K/mm3 VBG pH 7.458 H (7.320-7.420) BUN 23 H (9-20) mg/dL Creatinine 0.6 L (0.8-1.3) mg/dL Glucose 325 H (75-100) mg/dL POC Glucose (70-105) mg/dL Hemoglobin A1c (4-6) % Alkaline Phosphatase 148 H (35-129) units/L C-Reactive Protein 1.70 H (0.00-1.30) mg/dL Albumin 3.4 L (3.9-5) g/dL 05/05/21 05/05/21 05/05/21 Range/Units 04:20 04:20 04:20 MCHC 35 H (32-34) % RDW (13.2-15.2) % Eos % (Auto) 7.7 H (0.0-4.3) % Eos # (Auto) 0.7 H (0.0-0.4) K/mm3 VBG pH (7.320-7.420) BUN 22 H (9-20) mg/dL Creatinine 0.5 L (0.8-1.3) mg/dL Glucose 193 H (75-100) mg/dL POC Glucose (70-105) mg/dL Hemoglobin A1c 9.7 H (4-6) % Alkaline Phosphatase (35-129) units/L C-Reactive Protein (0.00-1.30) mg/dL Albumin (3.9-5) g/dL 05/05/21 05/05/21 Range/Units 06:36 11:45 MCHC (32-34) % RDW (13.2-15.2) % Eos % (Auto) (0.0-4.3) % Eos # (Auto) (0.0-0.4) K/mm3 VBG pH (7.320-7.420) BUN (9-20) mg/dL Creatinine (0.8-1.3) mg/dL Glucose (75-100) mg/dL POC Glucose 193 H 205 H (70-105) mg/dL Hemoglobin A1c (4-6) % Alkaline Phosphatase (35-129) units/L C-Reactive Protein (0.00-1.30) mg/dL Albumin (3.9-5) g/dL Diabetes panel 05/04/21 05/05/21 05/05/21 Range/Units 17:08 04:20 04:20 Sodium 137 138 (137-145) mmol/L Potassium 4.1 3.6 (3.6-5.0) mmol/L Chloride 99.3 101.6 (98-107) mmol/L Carbon Dioxide 24 25 (22-30) mmol/L BUN 23 H 22 H (9-20) mg/dL Creatinine 0.6 L 0.5 L (0.8-1.3) mg/dL Glucose 325 H 193 H (75-100) mg/dL Hemoglobin A1c 9.7 H (4-6) % Calcium 9.0 8.9 (8.4-10.2) mg/dL AST 12 (5-40) units/L ALT 21 (7-56) units/L Alkaline Phosphatase 148 H (35-129) units/L Total Protein 7.4 (6.3-8.2) g/dL Albumin 3.4 L (3.9-5) g/dL Calcium panel 05/04/21 05/05/21 Range/Units 17:08 04:20 Calcium 9.0 8.9 (8.4-10.2) mg/dL Albumin 3.4 L (3.9-5) g/dL Pituitary panel 05/04/21 05/05/21 Range/Units 17:08 04:20 Sodium 137 138 (137-145) mmol/L Potassium 4.1 3.6 (3.6-5.0) mmol/L Chloride 99.3 101.6 (98-107) mmol/L Carbon Dioxide 24 25 (22-30) mmol/L BUN 23 H 22 H (9-20) mg/dL Creatinine 0.6 L 0.5 L (0.8-1.3) mg/dL Glucose 325 H 193 H (75-100) mg/dL Calcium 9.0 8.9 (8.4-10.2) mg/dL Adrenal panel 05/04/21 05/05/21 Range/Units 17:08 04:20 Sodium 137 138 (137-145) mmol/L Potassium 4.1 3.6 (3.6-5.0) mmol/L Chloride 99.3 101.6 (98-107) mmol/L Carbon Dioxide 24 25 (22-30) mmol/L BUN 23 H 22 H (9-20) mg/dL Creatinine 0.6 L 0.5 L (0.8-1.3) mg/dL Glucose 325 H 193 H (75-100) mg/dL Calcium 9.0 8.9 (8.4-10.2) mg/dL Total Bilirubin 0.20 (0.1-1.2) mg/dL AST 12 (5-40) units/L ALT 21 (7-56) units/L Alkaline Phosphatase 148 H (35-129) units/L Total Protein 7.4 (6.3-8.2) g/dL Albumin 3.4 L (3.9-5) g/dL - Imaging Additional studies: MRI of left hand reviewed. A1c today was 9.6. Assessment and Plan - Patient Problems (1) Hand abscess Current Visit: Yes Status: Acute Plan to address problem: 1) I&D to unroof any undrained soft tissue infection and remove any possible foreign bodies. Case discussed with Dr. Cho. I will defer to Dr. Cho re treatment of any possible osteomyelitis or dx of septic arthritis (Seen on MRI.).
[2021-05-05] MEDS ORDERED: SUCCINYLCHOLINE CHLORIDE 200 MG/10 ML INJ MDV ONE (13:32)
[2021-05-05] MEDS ORDERED: ONDANSETRON 4 MG/2 ML INJ ONE (13:32)
[2021-05-05] MEDS ORDERED: SODIUM CHLORIDE 0.9% IRR 1,500 ML BOTTLE IR ONE (13:57)
[2021-05-05] MEDS ORDERED: HYDROmorphone 1 MG/1 ML INJ IV PRN ×2 (14:19)
[2021-05-05] MEDS ORDERED: ONDANSETRON 4 MG/2 ML INJ IV PRN (14:19)
--- NOTE | 2021-05-05 14:20 | Anesthesia Day of Surgery ---
Anesthesia Day of Surgery - Day of Surgery Patient Examined: Yes Patient H&P Reviewed: Yes Patient is NPO: No (Food this morning; unsure of time)
--- NOTE | 2021-05-05 14:21 | Anesthesia Consultation ---
Anesthesia Consult and Med Hx Date of service: 05/05/21 - Airway Anesthetic Teeth Evaluation: Good ROM Head & Neck: Adequate Mental/Hyoid Distance: Adequate Mallampati Class: Class III Intubation Access Assessment: Probably Good - Pre-Operative Health Status ASA Pre-Surgery Classification: ASA2, Emergency Proposed Anesthetic Plan: General - Pulmonary Hx Smoking: No - Endocrine Hx Non-Insulin Dependent Diabetes: Yes (Uncontrolled) - Other Systems Hx Alcohol Use: Yes
--- NOTE | 2021-05-05 14:30 | Procedure Note ---
Date of procedure: 05/05/21 Pre-op diagnosis: Right hand abscess Post-op diagnosis: same Procedure: I&D of right hand abscess Description of procedure: Pt was placed supine on the OR table. GETA was administered. Left hand was prepped and draped. The open wound over the dorsal 2nd metacarpal head was probed and the wound was found to tract 2 cm proximally and 1 cm distally. The tract was unroofed with the Bovie. A small amount of pus within the tract was collected for C&S. Hemostasis was obtained with the Bovie. Wound was irrigated with warm saline. Wound was packed open with a dilute Betadine moistened Kerlix roll followed by a dry 4 X 4 and Kerlix wrap about the hand. Pt was extubated in the OR and was taken to PACU in stable condition. Anesthesia: GETA Surgeon: KIKE SAENZ Estimated blood loss: minimal Pathology: list (C&S) Specimen disposition: to lab Condition: stable Disposition: PACU
[2021-05-05] MEDS: SODIUM CHLORIDE 0.9% 1000 ML 1,000 ML IV SCH (18:11)
--- NOTE | 2021-05-05 19:41 | Event Note ---
Date: 05/05/21 MRI left hand [05/05/2021];osteomyelitis metacarpal and proximal phalanx , periarticular osteomyelitis consistent with septic arthritis second MCP joint Soft tissue swelling throughout the palmar and dorsal surface and other findings noted Surgery evaluated the patient, patient underwent incision and drainage of the abscess Patient is on vancomycin and Unasyn. Orthopedic Dr. Cho evaluated the patient ID consult requested for tomorrow a.m. 05/06/2021
[2021-05-06] MEDS: VANCOMYCIN 1,500 MG in SODIUM CHLORIDE 0.9% 500 ML 500 ML IV SCH ×2 (01:00→12:01)
[2021-05-06] MEDS: AMPICILLIN/SULBACTA 3GM/100ML 3 GM/100 ML BAG IV SCH ×3 (06:00→11:57)
[2021-05-06 06:37] LABS: Basophils % (Auto) 0.6 % (0.0-1.8); Eosinophils # (Auto) 0.7 K/mm3 (0.0-0.4); Eosinophils % (Auto) 7.5 % (0.0-4.3); Hematocrit 38.5 % (35.5-45.6); Hemoglobin 13.5 gm/dl (11.8-15.2); Lymphocytes # (Auto) 1.7 K/mm3 (1.2-5.4); Lymphocytes % (Auto) 19.8 % (13.4-35.0); Mean Corpuscular HGB Conc 35 % (32-34); Mean Corpuscular Volume 85 fl (84-94); Monocytes # (Auto) 0.6 K/mm3 (0.0-0.8); Monocytes % (Auto) 6.6 % (0.0-7.3); Platelet Count 258 K/mm3 (140-440); Red Blood Count 4.51 M/mm3 (3.65-5.03)
[2021-05-06] MEDS: SODIUM CHLORIDE 0.9% 1000 ML 1,000 ML IV SCH (06:37)
[2021-05-06 06:41] LABS: Blood Urea Nitrogen 21 mg/dL (9-20); Calcium 8.3 mg/dL (8.4-10.2); Hemolysis Index 4
[2021-05-06 06:45] LABS: BUN/Creatinine Ratio 35
--- NOTE | 2021-05-06 08:30 | Post Anesthesia Evaluation ---
- Post Anesthesia Evaluation Patient Participated: Yes Airway Patent: Yes Stable Respiratory Function: Yes Nausea/Vomiting: No Temp > 96.8F: Yes Pain Manageable: Yes Adequeate Hydration: Yes Anesthesia Complications: No Block Receding Appropriately: Not Applicable Patient on Ventilator: No
[2021-05-06] MEDS: metFORMIN 500 MG TAB PO SCH ×2 (09:44→16:04)
[2021-05-06] MEDS: glipiZIDE 5 MG TAB PO SCH ×2 (09:44→16:04)
[2021-05-06] MEDS: FAMOTIDINE 20 MG TAB PO SCH (09:44)
[2021-05-06] MEDS: HEPARIN 5,000 UNIT/1 ML VIAL SUB-Q SCH (09:45)
[2021-05-06] MEDS: INSULIN LISPRO 100 UNIT/ML SUB-Q SCH ×3 (09:45→16:01)
--- NOTE | 2021-05-06 13:22 | Consultation ---
History of Present Illness - Reason for Consult Consult date: 05/06/21 hand osteomyelitis Requesting physician: ARGENIS KELLY - History of Present Illness The patient is a 45-year-old male with uncontrolled diabetes admitted with left hand swelling and pain going on for 10 days, patient injured his hand with a knife. Over a week, there was progressive swelling and purulent discharge. MRI revealed osteomyelitis involving the mid and distal second metacarpal as well as base of the second proximal phalanx, second MCP joint septic arthritis and periarticular osteomyelitis, myositis. Patient was seen by general surgery, underwent I&D of left hand abscess on 05/05/2021, purulence was sent for culture. Review of Systems: Negative except as per HPI Past History Past Medical History: diabetes Medications and Allergies Allergies Allergy/AdvReac Type Severity Reaction Status Date / Time No Known Allergies Allergy Verified 05/04/21 17:38 Active Meds: Active Medications Acetaminophen (Acetaminophen 325 Mg Tab) 650 mg PO Q4H PRN PRN Reason: Pain MILD(1-3)/Fever >100.5/LIMON Dextrose (Dextrose 50% In Water (25gm) 50 Ml Syringe) 50 ml IV Q30MIN PRN; Protocol PRN Reason: Hypoglycemia Famotidine (Famotidine 20 Mg Tab) 20 mg PO BID [facility] Last Admin: 05/06/21 09:44 Dose: 20 mg Documented by: Glipizide (Glipizide 5 Mg Tab) 5 mg PO BIDDIAB [facility] Last Admin: 05/06/21 09:44 Dose: 5 mg Documented by: Heparin Sodium (Porcine) (Heparin 5,000 Unit/1 Ml Vial) 5,000 unit SUB-Q Q12HR [facility] Last Admin: 05/06/21 09:45 Dose: 5,000 unit Documented by: Hydromorphone HCl (Hydromorphone 1 Mg/1 Ml Inj) 0.5 mg IV Q3H PRN PRN Reason: Pain , Severe (7-10) Hydromorphone HCl (Hydromorphone 1 Mg/1 Ml Inj) 0.25 mg IV Q10MIN PRN PRN Reason: Pain, Moderate (4-6) Stop: 05/06/21 14:18 Sodium Chloride (Nacl 0.9% 1000 Ml) 1,000 mls @ 75 mls/hr IV DIRECT [facility] Last Admin: 05/06/21 06:37 Dose: 75 mls/hr Documented by: Ampicillin Sodium/Sulbactam Sodium (Unasyn/Ns 3 Gm/100 Ml) 3 gm in 100 mls @ 100 mls/hr IV Q6HR [facility]; Protocol Last Admin: 05/06/21 11:57 Dose: 100 mls/hr Documented by: Vancomycin HCl 1,500 mg/ (Sodium Chloride) 530 mls @ 333.333 mls/hr IV Q12H [facility] Last Admin: 05/06/21 12:01 Dose: 333.333 mls/hr Documented by: Insulin Human Lispro (Insulin Lispro 100 Unit/Ml) 0 unit SUB-Q ACHS [facility]; Protocol Last Admin: 05/06/21 12:11 Dose: 3 unit Documented by: Metformin HCl (Metformin 500 Mg Tab) 500 mg PO BIDDIAB [facility] Last Admin: 05/06/21 09:44 Dose: 500 mg Documented by: Metoclopramide HCl (Metoclopramide 10 Mg/2 Ml Inj) 10 mg IV Q6H PRN PRN Reason: Nausea And Vomiting Ondansetron HCl (Ondansetron 4 Mg/2 Ml Inj) 4 mg IV Q8H PRN PRN Reason: Nausea And Vomiting Oxycodone/Acetaminophen (Oxycodone /Acetaminophen 5-325mg Tab) 1 tab PO Q6H PRN PRN Reason: Pain, Moderate (4-6) Sodium Chloride (Sodium Chloride 0.9% 10 Ml Flush Syringe) 10 ml IV BID [facility] Last Admin: 05/06/21 09:45 Dose: 10 ml Documented by: Sodium Chloride (Sodium Chloride 0.9% 10 Ml Flush Syringe) 10 ml IV PRN PRN PRN Reason: LINE FLUSH Physical Examination - Physical Exam Narrative exam: Physical Exam: Constitutional: Alert, cooperative. No acute distress Head, Ears, Nose: Normocephalic, atraumatic. External ears, nose normal Eyes: Conjunctivae/corneas clear. No icterus. No ptosis. Neck: Supple, no meningeal signs Oral: dentition fair, no thrush Cardiovascular: S1, S2 + Respiratory: Good air entry, clear to auscultation bilaterally GI: Soft, non-tender; bowel sounds normal. No peritoneal signs Musculoskeletal: No pedal edema, no cyanosis. Skin: No rash or abscess Hem/Lymphatic: No palpable cervical or supraclavicular nodes. No lymphangitis Psych: Mood ok. Affect normal Neurological: Awake, alert, oriented. No gross abnormality - Constitutional Vitals: Vital Signs Temp Pulse Resp BP Pulse Ox 98.0 F 61 18 123/71 97 05/06/21 12:13 05/06/21 12:13 05/06/21 12:13 05/06/21 12:13 05/06/21 12:13 Temperature -Last 24 Hours Temperature 98.0 F Temperature 98.3 F Temperature 99.4 F Temperature 98.6 F Temperature 99.0 F Temperature 98.7 F Temperature 97.7 F Temperature 97.9 F Temperature 97.3 F Results - Labs CBC & Chem 7: 05/06/21 05:18 05/06/21 05:18 Labs: Abnormal lab results 05/05/21 05/05/21 05/05/21 Range/Units 14:42 17:51 21:09 MCHC (32-34) % RDW (13.2-15.2) % Eos % (Auto) (0.0-4.3) % Eos # (Auto) (0.0-0.4) K/mm3 Potassium (3.6-5.0) mmol/L BUN (9-20) mg/dL Creatinine (0.8-1.3) mg/dL Glucose (75-100) mg/dL POC Glucose 165 H 271 H 177 H (70-105) mg/dL Calcium (8.4-10.2) mg/dL 05/06/21 05/06/21 05/06/21 Range/Units 05:18 05:18 09:43 MCHC 35 H (32-34) % RDW 13.0 L (13.2-15.2) % Eos % (Auto) 7.5 H (0.0-4.3) % Eos # (Auto) 0.7 H (0.0-0.4) K/mm3 Potassium 3.4 L (3.6-5.0) mmol/L BUN 21 H (9-20) mg/dL Creatinine 0.6 L (0.8-1.3) mg/dL Glucose 116 H (75-100) mg/dL POC Glucose 147 H (70-105) mg/dL Calcium 8.3 L (8.4-10.2) mg/dL 05/06/21 Range/Units 12:10 MCHC (32-34) % RDW (13.2-15.2) % Eos % (Auto) (0.0-4.3) % Eos # (Auto) (0.0-0.4) K/mm3 Potassium (3.6-5.0) mmol/L BUN (9-20) mg/dL Creatinine (0.8-1.3) mg/dL Glucose (75-100) mg/dL POC Glucose 154 H (70-105) mg/dL Calcium (8.4-10.2) mg/dL Assessment and Plan Cultures: 05/04/2021 blood culture: No growth A/P: 45-year-old male with uncontrolled diabetes admitted with left hand swelling and pain following trauma: #Left hand osteomyelitis, septic arthritis, myositis, cellulitis and abscess: Status post I&D on 05/05/2021, purulence was sent for culture. #Diabetes mellitus, uncontrolled Recs: Follow-up surgical drainage culture Empiric ceftriaxone, Flagyl, vancomycin for now Anticipate prolonged need for antibiotics, once blood cultures are negative at 48 hours, can place PICC line Wilfred Burnett MD, FACP [facility] O: [phone] F: [phone]
[2021-05-06] MEDS ORDERED: cefTRIAXone/NS 2 GM/100 ML 2 GM/100 ML BAG IV SCH (14:00)
[2021-05-06] MEDS ORDERED: metroNIDAZOLE/NS 500 MG/100 ML 500 MG/100 ML BAG IV SCH (14:00)
[2021-05-06] MEDS ORDERED: SODIUM HYPOCHLORITE, DAKIN'S FULL STRENGTH (0.5%) 473 ML TOPICAL SOLN TP PRN (14:03)
--- NOTE | 2021-05-06 18:21 | Progress Note ---
Assessment and Plan Assessment and plan: --Cellulitis/abscess of hand: Current Visit: Yes Status: Acute s/p incision and drainage , follow surgical cultures Wound care , ID change antibiotics to Vanco and Flagyl Elevate the limb, pain medications, Surgery, Ortho and ID following --Osteomyelitis left hand Current Visit: Yes Status: Acute MRI left hand :osteomyelitis mid and distal second metacarpal, base of the second proximal phalanx, second metacarpophalangeal joint with periarticular osteomyelitis ID evaluation noted and appreciated Change antibiotics to Vanco and Flagyl Follow culture sensitivities --Type diabetes mellitus Brief history and daily hospital course Current Visit: Yes Status: Acute Blood sugars well controlled Accu-Chek sliding scale coverage ADA diet Continue Metformin and glipizide Diabetic teaching, A1c 9.7 --DVT prophylaxis. Current Visit: Yes Status: Acute on heparin and GI prophylaxis We will closely monitor the patient and adjust management as needed Plan of care reviewed with the patient and his nurse Closely monitor the patient and adjust management as needed Unable to reach the family, will try to reach the family tomorrow again Brief history and daily hospital course: 45-year-old Belgian-speaking male patient was admitted through emergency room with swelling of the left hand with pain for the last 10 days followed by a cut injury of the hand with a knife at work, On evaluation in the emergency room patient noted to have extensive cellulitis and swelling of the hand evaluated by surgeon and orthopedic surgeon patient underwent MRI of the left hand the findings of which are as mentioned above, Patient underwent incision and drainage and started on IV antibiotics. MRI show osteomyelitis of the hand in different hand bones, ID has evaluated in consultation and recommended Vanco and Flagyl, Follow culture sensitivities and recommend long-term antibiotics once the cultures sensitivities are available 05/05/2021; patient underwent incision and drainage of the left hand abscess per surgery On IV Vanco and Unasyn, follow cultures MRI and findings consistent with osteomyelitis, will consult ID tomorrow 05/06/2021; ID evaluated the patient. Antibiotics adjusted to vancomycin and Flagyl Anticipating need for long-term antibiotics, follow cultures Continue wound care, pain management History Interval history: I have seen and examined the patient at the bedside Patient's chart and medications reviewed Patient complains of some pain in the left hand Vital signs noted Hospitalist Physical - Constitutional Vitals: Temp Pulse Resp BP Pulse Ox 98.3 F 63 18 134/71 98 05/06/21 15:54 05/06/21 15:54 05/06/21 15:54 05/06/21 15:54 05/06/21 15:54 General appearance: Present: no acute distress, well-nourished, other (Sleeping easily awakens) - EENT Eyes: Present: PERRL, EOM intact - Neck Neck: Present: supple, normal ROM - Respiratory Respiratory effort: normal Respiratory: bilateral: diminished, negative: rales, rhonchi, wheezing - Cardiovascular Rhythm: regular Heart Sounds: Present: S1 & S2 - Extremities Extremities: abnormal (Cellulitis/osteomyelitis left hand, surgical dressing in place) - Abdominal General gastrointestinal: soft, non-tender, non-distended, normal bowel sounds - Integumentary Integumentary: Present: clear, warm - Psychiatric Psychiatric: appropriate mood/affect, cooperative - Neurologic Neurologic: CNII-XII intact, moves all extremities Results - Labs CBC & Chem 7: 05/06/21 05:18 05/06/21 05:18 Labs: Laboratory Last Values WBC 8.7 K/mm3 (4.5-11.0) 05/06/21 05:18 RBC 4.51 M/mm3 (3.65-5.03) 05/06/21 05:18 Hgb 13.5 gm/dl (11.8-15.2) 05/06/21 05:18 Hct 38.5 % (35.5-45.6) 05/06/21 05:18 MCV 85 fl (84-94) 05/06/21 05:18 MCH 30 pg (28-32) 05/06/21 05:18 MCHC 35 % (32-34) H 05/06/21 05:18 RDW 13.0 % (13.2-15.2) L 05/06/21 05:18 Plt Count 258 K/mm3 (140-440) 05/06/21 05:18 Lymph % (Auto) 19.8 % (13.4-35.0) 05/06/21 05:18 Converse % (Auto) 6.6 % (0.0-7.3) 05/06/21 05:18 Eos % (Auto) 7.5 % (0.0-4.3) H 05/06/21 05:18 Baso % (Auto) 0.6 % (0.0-1.8) 05/06/21 05:18 Lymph # (Auto) 1.7 K/mm3 (1.2-5.4) 05/06/21 05:18 Converse # (Auto) 0.6 K/mm3 (0.0-0.8) 05/06/21 05:18 Eos # (Auto) 0.7 K/mm3 (0.0-0.4) H 05/06/21 05:18 Baso # (Auto) 0.0 K/mm3 (0.0-0.1) 05/06/21 05:18 Seg Neutrophils % 65.5 % (40.0-70.0) 05/06/21 05:18 Seg Neutrophils # 5.7 K/mm3 (1.8-7.7) 05/06/21 05:18 VBG pH 7.458 (7.320-7.420) H 05/04/21 17:08 Sodium 142 mmol/L (137-145) 05/06/21 05:18 Potassium 3.4 mmol/L (3.6-5.0) L 05/06/21 05:18 Chloride 106.1 mmol/L (98-107) 05/06/21 05:18 Carbon Dioxide 25 mmol/L (22-30) 05/06/21 05:18 Anion Gap 14 mmol/L 05/06/21 05:18 BUN 21 mg/dL (9-20) H 05/06/21 05:18 Creatinine 0.6 mg/dL (0.8-1.3) L 05/06/21 05:18 Estimated GFR > 60 ml/min 05/06/21 05:18 BUN/Creatinine Ratio 35 % 05/06/21 05:18 Glucose 116 mg/dL (75-100) H 05/06/21 05:18 POC Glucose 116 mg/dL (70-105) H 05/06/21 15:59 Hemoglobin A1c 9.7 % (4-6) H 05/05/21 04:20 Lactic Acid 1.20 mmol/L (0.7-2.0) 05/04/21 17:08 Calcium 8.3 mg/dL (8.4-10.2) L 05/06/21 05:18 Total Bilirubin 0.20 mg/dL (0.1-1.2) 05/04/21 17:08 AST 12 units/L (5-40) 05/04/21 17:08 ALT 21 units/L (7-56) 05/04/21 17:08 Alkaline Phosphatase 148 units/L (35-129) H 05/04/21 17:08 C-Reactive Protein 1.70 mg/dL (0.00-1.30) H 05/04/21 17:08 Total Protein 7.4 g/dL (6.3-8.2) 05/04/21 17:08 Albumin 3.4 g/dL (3.9-5) L 05/04/21 17:08 Albumin/Globulin Ratio 0.9 % 05/04/21 17:08 Vancomycin Trough 32.1 ug/mL (5.0-20.0) H 05/06/21 13:48 Microbiology: Microbiology 05/05/21 Unknown Hand - Left Surgical Culture - Final Beta Hemolytic Strep Group B 05/04/21 17:08 Peripheral/Venous Blood Culture - Preliminary NO GROWTH AFTER 24 HOURS 05/04/21 17:08 Peripheral/Venous Blood Culture - Preliminary NO GROWTH AFTER 24 HOURS Matthews/IV: Voiding Method Toilet Active Medications - Current Medications Current Medications: Generic Name Dose Route Start Last Admin Trade Name Freq PRN Reason Stop Dose Admin Acetaminophen 650 mg 05/04/21 23:50 Acetaminophen 325 Mg Tab PO Q4H PRN Pain MILD(1-3)/Fever >100.5/LIMON Dextrose 50 ml 05/04/21 23:50 Dextrose 50% In Water (25gm) 50 Ml Syringe IV Q30MIN PRN Hypoglycemia Protocol Famotidine 20 mg 05/05/21 10:00 05/06/21 09:44 Famotidine 20 Mg Tab PO 20 mg BID SIMEON Administration Glipizide 5 mg 05/05/21 09:00 05/06/21 16:04 Glipizide 5 Mg Tab PO 5 mg BIDDIAB SIMEON Administration Heparin Sodium (Porcine) 5,000 unit 05/05/21 10:00 05/06/21 09:45 Heparin 5,000 Unit/1 Ml Vial SUB-Q 5,000 unit Q12HR SIMEON Administration Hydromorphone HCl 0.5 mg 05/04/21 23:50 Hydromorphone 1 Mg/1 Ml Inj IV Q3H PRN Pain , Severe (7-10) Sodium Chloride 1,000 mls @ 75 mls/hr 05/04/21 23:50 05/06/21 06:37 Nacl 0.9% 1000 Ml IV 75 mls/hr DIRECT SIMEON Administration Vancomycin HCl 1,500 mg/ 530 mls @ 333.333 mls/hr 05/05/21 13:00 05/06/21 12:01 Sodium Chloride IV 333.333 mls/hr Q12H SIMEON Administration Ceftriaxone Sodium 2 gm in 100 mls @ 200 mls/hr 05/06/21 14:00 05/06/21 14:50 Rocephin/Ns 2 Gm/100 Ml IV 200 mls/hr Q24H SIMEON Administration Protocol Metronidazole 500 mg in 100 mls @ 100 mls/hr 05/06/21 14:00 05/06/21 14:50 Flagyl 500 Mg/100 Ml IV 100 mls/hr Q8H SIMEON Administration Protocol Insulin Human Lispro 0 unit 05/05/21 07:30 05/06/21 16:01 Insulin Lispro 100 Unit/Ml SUB-Q Not Given ACHS SIMEON Protocol Metformin HCl 500 mg 05/05/21 09:00 05/06/21 16:04 Metformin 500 Mg Tab PO 500 mg BIDDIAB SIMEON Administration Metoclopramide HCl 10 mg 05/04/21 23:50 Metoclopramide 10 Mg/2 Ml Inj IV Q6H PRN Nausea And Vomiting Ondansetron HCl 4 mg 05/04/21 23:50 Ondansetron 4 Mg/2 Ml Inj IV Q8H PRN Nausea And Vomiting Oxycodone/Acetaminophen 1 tab 05/04/21 23:50 Oxycodone /Acetaminophen 5-325mg Tab PO Q6H PRN Pain, Moderate (4-6) Sodium Chloride 10 ml 05/04/21 23:50 05/06/21 09:45 Sodium Chloride 0.9% 10 Ml Flush Syringe IV 10 ml BID SIMEON Administration Sodium Chloride 10 ml 05/04/21 23:50 Sodium Chloride 0.9% 10 Ml Flush Syringe IV PRN PRN LINE FLUSH Sodium Hypochlorite 1 applic 05/06/21 14:03 Sodium Hypochlorite, Dakin's Full Strength (0.5%) 473 Ml Topical Soln TP Q12H PRN Wound Care
[2021-05-06] MEDS ORDERED: POTASSIUM CHLORIDE ER 20 MEQ TAB PO ONE (20:00)
[2021-05-06 21:36] VITALS: BP 139/70
== END 2021-05-06 22:50 | disposition left against medical advice (07) | DRG 854 ==
LOC: ED 13:57 → 3A 18:36 → 4A 05-05 04:45 → OBSVTOIN 05-05 19:25
PROVIDERS: ADMIT Internal Medicine; ATTEND Internal Medicine
PROC: 0J9K0ZZ Drainage of Left Hand Subcutaneous Tissue and Fascia, Open Approach (ICD-10-PCS; principal; 2021-05-05)
DX: A41.9 Sepsis, unspecified organism (principal); L03.113 Cellulitis of right upper limb; L02.511 Cutaneous abscess of right hand; L02.512 Cutaneous abscess of left hand; M00.9 Pyogenic arthritis, unspecified; L03.114 Cellulitis of left upper limb; M86.142 Other acute osteomyelitis, left hand; M86.141 Other acute osteomyelitis, right hand; E11.69 Type 2 diabetes mellitus with other specified complication; E11.65 Type 2 diabetes mellitus with hyperglycemia; M65.332 Trigger finger, left middle finger; Z53.29 Procedure and treatment not carried out because of patient's decision for other reasons
CPT/HCPCS: 36415; 80048; 80053; 80202; 82140; 82805; 82962; 83036; 85025; 86140; 87040; 87075; 87116; 90715; G0378; J0295; J0330; J0696; J1170; J1644; J1815; J2001; J2405; J2704; J3010; J3370; J7030; J7040